=== PATIENT | female | born 1990 | race American Indian/Alaskan Native ===

== ENCOUNTER 2020-08-06 13:01 | Inpatient (IN) | payer MEDICAID ==
[2020-08-06] MEDS ORDERED: fentaNYL 100 MCG/2 ML INJ IV PRN (13:48)
[2020-08-06] MEDS ORDERED: ePHEDrine SULFATE 50 MG/1 ML INJ IV PRN (13:48)
[2020-08-06] MEDS ORDERED: TERBUTALINE 1 MG/1 ML INJ SUB-Q PRN (13:48)
[2020-08-06] MEDS ORDERED: MINERAL OIL 30 ML ORAL LIQD PO PRN (13:48)
[2020-08-06] MEDS ORDERED: OXYTOCIN DRIP 30 UNITS/500 ML BAG IV SCH (14:00)
[2020-08-06] MEDS ORDERED: AMPICILLIN/NS 2 GM/100 ML 2 GM/100 ML BAG IV ONE (14:00)
--- NOTE | 2020-08-06 14:03 | History and Physical Report ---
History of Present Illness Date of examination: 08/06/20 Date of admission: 08/06/2020 Chief complaint: Contractions History of present illness: 30 year old female presents with contractions since sometime this morning. Patient denies LOF or VB. Patient received care at [facility] and records are available. LMP 10/17/2019. EDC 08/16/2020. 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 labs are as follows: B+, antibody screen negative, rubella immune, hepatitis B surface antigen negative, HIV negative, RPR nonreactive, gonorrhea negative, chlamydia negative, trichomonas negative, AFP negative, 1 hour sugar test 221 (hemoglobin A1C 6.0%), GBS positive. Past History Past Medical History: other (obesity, sickle cell trait) Past Surgical History: other (D&E 2015) [facility] History: herpes (has been on Valtrex suppression; pt. denies lesions or prodromal symptoms). denies: chlamydia, gonorrhea, hepatitis B, hepatitis C, HIV, syphilis, trichomonas Family/Genetic History: diabetes, hypertension, other (glaucoma) Social history: no significant social history, lives with family, full code. denies: smoking, alcohol abuse, prescription drug abuse, IV drug use - Obstetrical History Expected Date of Delivery: 08/16/20 Actual Gestation: 38 Week(s) 4 Day(s) : 2 Para: 0 Hx # Term Pregnancies: 0 Number of Pregnancies: 0 Spontaneous Abortions: 1 Induced : 0 Number of Living Children: 0 Medications and Allergies Active Meds: Active Medications Ephedrine Sulfate (Ephedrine Sulfate) 10 mg IV Q2M PRN PRN Reason: Hypotension Fentanyl (Sublimaze) 100 mcg IV Q2H PRN PRN Reason: Pain,Severe (7-10) LABOR PAIN Oxytocin/Sodium Chloride (Pitocin/Ns 30 Unit/500ml) 30 units in 500 mls @ 2 mls/hr IV TITR CHANDU; Protocol Lactated Ringer's (Lactated Ringers) 1,000 mls @ 125 mls/hr IV DIRECT CHANDU Ampicillin Sodium (Ampicillin/Ns 2 Gm/100 Ml) 2 gm in 100 mls @ 100 mls/hr IV ONCE ONE; Protocol Stop: 08/06/20 14:59 Ampicillin Sodium (Ampicillin/Ns 1 Gm/50 Ml) 1 gm in 50 mls @ 100 mls/hr IV Q4HR CHANDU; Protocol Lidocaine (Xylocaine 2%) 20 ml INFILTRATI ONCE ONE Stop: 08/06/20 13:49 Mineral Oil (Mineral Oil) 30 ml PO QHS PRN PRN Reason: Constipation Terbutaline Sulfate (Brethine) 0.25 mg SUB-Q ONCE PRN PRN Reason: Hyperstimulation/Hypertonicity Valacyclovir HCl (Valtrex) 500 mg PO BID [facility] Review of Systems All systems: negative (contractions) - Vital Signs Vital signs: Vital Signs Pulse BP 110 H 125/83 08/06/20 13:30 08/06/20 13:30 Temp Pulse Resp BP Pulse Ox 114 H 125/83 100 08/06/20 13:49 08/06/20 13:30 08/06/20 13:49 - Physical Exam Abdomen: Positive: normal appearance, soft. Negative: distention, tenderness, guarding, rigidity Genitourinary (Female): Positive: normal external genitalia, normal perenium. Negative: perineal/vulvar lesions (no lesions noted on careful exam with bright light upon admission) Vagina: Positive: normal moisture Uterus: Positive: enlarged. Negative: tender Anus/Rectum: Positive: normal perianal skin Extremities: Positive: normal. Negative: tenderness - Obstetrical Uterine Contraction Monitor Mode: External Cervical Dilatation: 5 Cervical Effacement Percentage: 100 station: -1 Uterine Contraction Pattern: Regular Uterine Contraction Intensity: Moderate Results All other labs normal. Assessment and Plan A: at 38 weeks, 4 days gestation. Active labor. GBS positive. GDM. HSV 2 positive, pt. denies lesions or prodromal symptoms. P: Admit. EFM. Monitor blood sugars. GBS prophylaxis. Continue suppression of HSV with Valtrex.
[2020-08-06] MEDS ORDERED: LACTATED RINGERS 1,000 ML IV SCH (15:00)
[2020-08-06] MEDS ORDERED: LIDOCAINE (2%) 20 MG/1 ML VIAL 20 ML MDV INFILTRATI ONE (15:00)
[2020-08-06 15:02] LABS: Hematocrit 44.4 % (30.3-42.9); Mean Corpuscular HGB Conc 34 % (30-34); Mean Corpuscular Volume 81 fl (79-97); Platelet Count 229 K/mm3 (140-440); Red Blood Count 5.45 M/mm3 (3.65-5.03); Red Cell Distribution Width 15.4 % (13.2-15.2)
[2020-08-06] MEDS ORDERED: OXYTOCIN 10 UNIT/1 ML INJ ONE (15:37)
[2020-08-06] MEDS ORDERED: WITCH HAZEL/ GLYCERIN PAD TP PRN (15:54)
[2020-08-06] MEDS ORDERED: LANOLIN/ZINC/DIMETHICONE (LANSINOH) 7 GM TP PRN (15:54)
[2020-08-06] MEDS ORDERED: HYDROcodone/ACETAMINOPHEN 5-325 MG TAB PO PRN (15:54)
[2020-08-06] MEDS ORDERED: miSOPROStol 200 MCG TAB PR ONE (16:00)
[2020-08-06] MEDS ORDERED: miSOPROStol 200 MCG TAB ONE (16:00)
--- NOTE | 2020-08-06 16:00 | Procedure Note ---
OB Delivery Note - Delivery Date of Delivery: 08/06/20 Surgeon: ELIZA FERNANDEZ Estimated blood loss: 200cc - Vaginal Delivery presentation: vertex Delivery position: OA Intrapartum events: precipitous labor- <3hr Delivery induction: none Delivery monitor: external FHT, external uterine Delivery placenta: spontaneous Delivery cord: 3 umbilical vessels Episiotomy: none Delivery laceration: none Anesthesia: local Delivery comments: Spontaneous vaginal delivery at 15:39 of liveborn male infant weighing 6 lb. 1 oz. over intact perineum with apgars of 8/9. Delivery of baby was atraumatic. No nuchal cord. Baby placed skin to skin with mom immediately after delivery. Spontaneous cry and respirations. Baby bulb suctioned and dried with warm towels. 3 vessel cord double clamped and cut (delayed cord clamping). Pitocin given after delivery of placenta. EBL 200 cc. No lacerations noted. Vaginal sweep negative. Sponge count correct. Mother and baby stable.
[2020-08-06] MEDS ORDERED: AMPICILLIN/NS 1 GM/50 ML 1 GM/50 ML BAG IV SCH (18:00)
[2020-08-06 19:22] LABS: Alanine Aminotransferase 9 units/L (7-56); Albumin 3.8 g/dL (3.9-5); Blood Urea Nitrogen 6 mg/dL (7-17); Calcium 9.3 mg/dL (8.4-10.2); Hemolysis Index 4
[2020-08-06 19:31] LABS: BUN/Creatinine Ratio 10
[2020-08-06 19:32] LABS: Hepatitis C Virus Antibody Non-Reactive (NonReactive)
[2020-08-06] MEDS ORDERED: valACYclovir 500 MG TAB PO SCH (22:00)
[2020-08-06] MEDS ORDERED: MAGNESIUM HYDROXIDE (MOM) ORAL LIQD UDC PO PRN (22:00)
[2020-08-06] MEDS: IBUPROFEN 600 MG TAB PO SCH (22:27)
[2020-08-07 05:29] LABS: Hematocrit 34.1 % (30.3-42.9); Hemoglobin 11.3 gm/dl (10.1-14.3)
[2020-08-07] MEDS: IBUPROFEN 600 MG TAB PO SCH ×2 (09:33→17:01)
[2020-08-07] MEDS: DOCUSATE SODIUM 100 MG CAP PO SCH ×2 (09:34→21:41)
--- NOTE | 2020-08-07 10:12 | Progress Note ---
Assessment and Plan PP DAY 1 A: S/P P: Continue monitoring D/C home tomm if stable - Patient Problems (1) (normal spontaneous vaginal delivery) Current Visit: Yes Status: Acute Subjective - Subjective Date of service: 08/07/20 Patient reports: appetite normal, voiding normally, pain well controlled, ambulating normally [place]: doing well, bottle feeding Objective - Vital Signs Latest vital signs: Vital Signs Temp Pulse Resp BP Pulse Ox 08/07/20 04:56 98.0 F 81 18 112/76 99 08/07/20 02:09 98.1 F 81 18 140/88 100 08/06/20 20:56 98.5 F 91 H 18 120/65 100 08/06/20 18:30 98.1 F 86 22 120/72 98 08/06/20 17:53 97 H 100 08/06/20 17:48 101 H 100 08/06/20 17:44 153/75 08/06/20 17:43 85 100 08/06/20 17:38 87 100 08/06/20 17:34 95 H 139/78 08/06/20 17:33 88 100 08/06/20 17:28 88 100 08/06/20 17:25 91 H 133/64 08/06/20 17:24 88 164/96 08/06/20 17:23 94 H 100 08/06/20 17:18 89 100 08/06/20 17:14 89 160/90 08/06/20 17:13 89 98 08/06/20 17:08 100 H 98 08/06/20 17:04 90 131/68 08/06/20 17:03 102 H 99 08/06/20 16:58 101 H 190/70 98 08/06/20 16:54 102 H 164/145 94 08/06/20 16:53 91 H 98 08/06/20 16:48 103 H 99 08/06/20 16:44 97 H 164/137 08/06/20 16:43 94 H 97 08/06/20 16:38 105 H 98 08/06/20 16:34 65 86 08/06/20 16:33 97 H 100 08/06/20 16:28 101 H 99 08/06/20 16:27 101 H 90 08/06/20 16:24 100 H 162/92 10/18/20 16:23 98 H 98 10/18/20 16:18 105 H 100 10/18/20 16:14 100 H 156/72 10/18/20 16:13 102 H 99 10/18/20 16:08 108 H 100 10/18/20 16:05 101 H 150/67 10/18/20 16:03 106 H 99 10/18/20 15:58 106 H 98 10/18/20 15:55 107 H 158/95 10/18/20 15:53 109 H 100 10/18/20 15:48 107 H 95 10/18/20 15:44 106 H 91 10/18/20 15:43 106 H 98 10/18/20 15:38 158 H 85 10/18/20 15:33 120 H 99 10/18/20 15:30 81 93 10/18/20 15:28 114 H 85 10/18/20 15:24 110 H 92 10/18/20 15:23 104 H 97 10/18/20 15:18 96 H 100 10/18/20 15:13 93 H 100 10/18/20 15:08 108 H 99 10/18/20 15:03 102 H 100 10/18/20 14:58 105 H 100 10/18/20 14:56 112 H 94 10/18/20 14:53 102 H 100 10/18/20 14:48 98 H 100 10/18/20 14:43 107 H 99 10/18/20 14:38 96 H 99 10/18/20 14:33 100 H 98 10/18/20 14:28 102 H 100 10/18/20 14:23 89 100 10/18/20 14:18 105 H 99 10/18/20 14:13 103 H 99 10/18/20 14:08 111 H 98 10/18/20 13:49 114 H 100 10/18/20 13:44 100 H 100 10/18/20 13:39 101 H 100 10/18/20 13:34 61 94 10/18/20 13:30 98.3 F 110 H 125/83 Intake and Output 10/18/20 10/19/20 10/19/20 22:59 06:59 14:59 Intake Total 360 480 Output Total 1100 600 Balance -740 -120 Intake: Oral 240 Intake, Free Water 120 480 Output: Urine 1100 600 Void 1100 600 Other: Total, Intake Amount 240 Total, Output Amount 500 600 Weight 251 lb Estimated Blood Loss 200 - Exam Breasts: Present: normal Abdomen: Present: normal appearance, soft, normal bowel sounds Vulva: both: normal Uterus: Present: normal, firm, fundal height below umbilicus Extremities: Present: normal - Labs Labs: Abnormal lab results 08/06/20 08/06/20 08/07/20 Range/Units 14:45 18:35 06:56 RBC 5.45 H (3.65-5.03) M/mm3 Hgb 15.0 H (10.1-14.3) gm/dl Hct 44.4 H (30.3-42.9) % RDW 15.4 H (13.2-15.2) % Sodium 131 L (137-145) mmol/L Chloride 96.3 L (98-107) mmol/L Carbon Dioxide 21 L (22-30) mmol/L BUN 6 L (7-17) mg/dL Glucose 116 H (65-100) mg/dL POC Glucose 107 H (70-105) Alkaline Phosphatase 176 H (35-129) units/L Albumin 3.8 L (3.9-5) g/dL
--- NOTE | 2020-08-07 10:24 | Discharge Summary ---
Providers - Providers Date of Admission: 08/06/20 13:48 T Date of discharge: 08/08/20 Attending physician: JUAN CARLOS LOW Primary care physician: JUAN CARLOS LOW Hospitalization Reason for admission: active labor Delivery: Episiotomy: none Laceration: none Other procedures: none complications: none Discharge diagnosis: IUP at term delivered baby: male Hospital course: Pt was admitted had a and was d/cd home in stable condition. See H&P, delivery summary , and pp notes. Condition at discharge: Stable Disposition: DC-01 TO HOME OR SELFCARE - Discharge Diagnoses (1) (normal spontaneous vaginal delivery) Status: Acute Plan - Discharge Medications Prescriptions: Ibuprofen [Motrin 600 MG tab] 600 mg PO Q6H #60 tablet - Provider Discharge Summary Activity: routine, no sex for 6 weeks, no heavy lifting 4 weeks, no strenuous exercise Diet: routine Additional instructions: [] Smoking cessation referral if applicable(refer to patient education folder for contact #) [] Refer to [facility] Booklet Call your doctor immediately for: * Fever > 100.5 * Heavy vaginal bleeding ( >1 pad per hour) * Severe persistent headache * Shortness of breath * Reddened, hot, painful area to leg or breast * Drainage or odor from incision. * Keep incision clean and dry at all times and follow doctor's instructions regarding bathing/showering - Follow up plan Follow up: JUAN CARLOS LOW MD [Primary Care Provider] - 6 Weeks
[2020-08-08] MEDS: IBUPROFEN 600 MG TAB PO SCH ×2 (05:04→12:36)
[2020-08-08 12:24] VITALS: BP 129/79
[2020-08-08] MEDS: DOCUSATE SODIUM 100 MG CAP PO SCH (12:36)
== END 2020-08-08 13:37 | disposition home or self-care (01) | DRG 774 ==
LOC: TRG 13:01 → APU 13:02 → LD 13:48 → TRG 13:48 → OB 18:42
PROVIDERS: ADMIT Obstetrics & Gynecology; ATTEND Obstetrics & Gynecology
PROC: 10E0XZZ Delivery of Products of Conception, External Approach (ICD-10-PCS; principal; 2020-08-06)
DX: O24.429 Gestational diabetes mellitus in childbirth, unspecified control (principal); O98.52 Other viral diseases complicating childbirth; Z37.0 Single live birth; Z3A.38 38 weeks gestation of pregnancy; O99.214 Obesity complicating childbirth; O62.9 Abnormality of forces of labor, unspecified; O99.824 Streptococcus B carrier state complicating childbirth; B00.9 Herpesviral infection, unspecified; O99.02 Anemia complicating childbirth; D57.3 Sickle-cell trait; Z83.3 Family history of diabetes mellitus; Z82.49 Family history of ischemic heart disease and other diseases of the circulatory system; Z83.511 Family history of glaucoma; Z20.828 Contact with and (suspected) exposure to other viral communicable diseases
CPT/HCPCS: 36415; 80053; 82962; 83615; 84550; 85014; 85018; 85027; 86592; 86706; 86803; 86850; 86900; 86901; 87806; G0378; J0290; J2590; J3010; U0003-CS